=== PATIENT | male | born 1995 | race Caucasian/White ===

== ENCOUNTER 2018-10-26 08:55 | Emergency (ER) | payer OTHER ==
[2018-10-26] MEDS ORDERED: NS 0.9% 1000 ML* 1,000 ML IV ONE (09:37)
[2018-10-26] MEDS ORDERED: Ketorolac INJ* 30 MG/ML 1 ML VIAL IV PUSH ONE (09:38)
--- NOTE | 2018-10-26 09:38 | ED ---
Influenza-Like Illness - HPI Summary HPI Summary: This pt is a 22 y/o male presenting to [facility] c/o headache and sore throat today. Pt reports for the past 2 days he has had nausea, vomiting, diarrhea, fever and full body aches. He states that diarrhea and vomiting have slowly resolved. Currently denies nausea, vomiting, diarrhea, fever, chills. Today he notes he developed a headache and a sore throat. Denies fever, chills, neck pain , nuchal rigidity, photophobia, chest pain, SOB. No PMHx. - History of Current Complaint Chief Complaint: EDGeneral Time Seen by Provider: 10/26/18 09:18 Hx Obtained From: Patient Onset/Duration: Gradual Onset, Lasting Days, Still Present Severity: Moderate Associated Signs & Symptoms: Fever - has resolved, Myalgia - has resolved, Sore Throat, Headache, Vomiting - has resolved, Diarrhea - has resolved - Allergy/Home Medications Allergies/Adverse Reactions: Allergies Allergy/AdvReac Type Severity Reaction Status Date / Time No Known Allergies Allergy Verified 10/26/18 09:10 Home Medications: Home Medications Ibuprofen TAB* [Motrin TAB* 400 MG] 400 mg PO Q6H PRN 10/26/18 [History Confirmed 10/26/18] PMH/Surg Hx/FS Hx/Imm Hx Endocrine/Hematology History: Denies: Hx Diabetes Cardiovascular History: Denies: Hx Hypertension Infectious Disease History: No Infectious Disease History: Denies: Traveled Outside the [place] in Last 30 Days - Family History Known Family History: Negative: Cardiac Disease - Social History Alcohol Use: Weekly Substance Use Type: Reports: None Smoking Status (MU): Former Smoker Review of Systems Negative: Fever, Chills Negative: Photophobia Positive: Sore Throat Negative: Chest Pain Negative: Shortness Of Breath Negative: Abdominal Pain, Vomiting, Diarrhea, Nausea Negative: Other - NEG: neck pain Positive: Headache All Other Systems Reviewed And Are Negative: Yes Physical Exam - Summary Physical Exam Summary: VITAL SIGNS: Reviewed. GENERAL: Patient is a well-developed and nourished male who is lying comfortable in the stretcher. Patient is not in any acute respiratory distress. HEAD AND FACE: No signs of trauma. No ecchymosis, hematomas or skull depressions. No sinus tenderness. EYES: PERRLA, EOMI x 2, No injected conjunctiva, no nystagmus. EARS: Hearing grossly intact. Ear canals and tympanic membranes are within normal limits. MOUTH: Oropharynx within normal limits.Positive pharyngeal erythema. NECK: Supple, trachea is midline, no adenopathy, no JVD, no carotid bruit, no c- spine tenderness, neck with full ROM. CHEST: Symmetric, no tenderness at palpation LUNGS: Clear to auscultation bilaterally. No wheezing or crackles. CVS: Regular rate and rhythm, S1 and S2 present, no murmurs or gallops appreciated. ABDOMEN: Soft, non-tender. No signs of distention. No rebound, no guarding, and no masses palpated. Bowel sounds are normal. EXTREMITIES: FROM in all major joints, no edema, no cyanosis or clubbing. NEURO: Alert and oriented x 3. No acute neurological deficits. Speech is normal and follows commands. SKIN: Dry and warm Triage Information Reviewed: Yes Vital Signs On Initial Exam: Initial Vitals Temp Pulse Resp BP Pulse Ox 97.7 F 60 18 121/67 99 10/26/18 09:06 10/26/18 09:06 10/26/18 09:06 10/26/18 09:06 10/26/18 09:06 Vital Signs Reviewed: Yes Diagnostics - Vital Signs Vital Signs Temp Pulse Resp BP Pulse Ox 10/26/18 09:24 52 121/68 97 10/26/18 09:06 97.7 F 60 18 121/67 99 - Laboratory Result Diagrams: 10/26/18 09:50 10/26/18 09:50 Lab Statement: Any lab studies that have been ordered have been reviewed, and results considered in the medical decision making process. Re-Evaluation - Re-Evaluation First Eval Re-Evaluation Time: 10:47 Change: Improved Comment: I reviewed the lab results with the pt. He will be discharged home. Flu Symptom Course/Dx - Course Assessment/Plan: This pt is a 22 y/o male presenting to [facility] c/o headache and sore throat today. Pt reports for the past 2 days he has had nausea, vomiting, diarrhea, fever and full body aches. He states that diarrhea and vomiting have slowly resolved. Currently denies nausea, vomiting, diarrhea, fever, chills. Today he notes he developed a headache and a sore throat. Denies fever, chills, neck pain, nuchal rigidity, photophobia, chest pain, SOB. No PMHx. Blood work without any significant abnormality. Rapid strep is positive. Influenza A and B is negative. In the ED course the patient was given fluids, Toradol and Augmentin. After these medications the patients symptoms have significantly improved. I discussed all the findings and test results with the patient. Patient was instructed to return to the emergency room immediately if any of the symptoms return or worsens. Plan of care was discussed with the patient, and he understands and agrees. All questions were answered at patient satisfaction. There were no further complaints or concerns. Lung exam before discharge: CTA B/L. Good air exchange. No wheezing or crackles heard. CVS: S1 and S2 present. No murmurs appreciated. Patient is alert and oriented x 3. Patient is hemodynamically stable. Patient will be discharged home with follow up PCP in the next 2-3 days. - Diagnoses Differential Diagnosis/HQI/PQRI: Positive: Broncholiolitis, Influenza, Upper Respiratory Infection Provider Diagnoses: Strep pharyngitis Discharge - Sign-Out/Discharge Documenting (check all that apply): Patient Departure - Discharge home - Discharge Plan Condition: Stable Disposition: HOME Prescriptions: Amoxicillin/Clavulanate TAB* [Augmentin TAB 875*] 875 mg PO BID #20 tab Patient Education Materials: Strep Throat (ED) Referrals: [facility] [Outside] Additional Instructions: FOLLOW UP WITH YOUR PRIMARY CARE PROVIDER WITHIN 2-3 DAYS. IF YOU DON'T HAVE ONE , PLEASE FOLLOW UP WITH [facility]. RETURN TO THE ED FOR ANY NEW OR WORSENING SYMPTOMS. - Billing Disposition and Condition Condition: STABLE Disposition: Home - Attestation Statements Document Initiated by Jo: Yes Documenting Scribe: Pamela Irwin Provider For Whom Jo is Documenting (Include Credential): Arden Trinh MD Scribe Attestation: Pamela Camejo, scribed for Arden Trihn MD on 10/26/18 at 1901. Scribe Documentation Reviewed: Yes Provider Attestation: The documentation as recorded by the Pamela garcia accurately reflects the service I personally performed and the decisions made by me, Arden Trinh MD Status of Scribe Document: Viewed
[2018-10-26 10:04] LABS: ABS Basophils 0 10^3/ul (0-0.2); ABS Eosinophils 0.1 10^3/ul (0-0.6); ABS Monocytes 0.7 10^3/ul (0-0.8); ABS Neutrophils 3.4 10^3/ul (1.5-7.7); ABS Nucleated RBC 0 10^3/ul; Eosinophil % 2.2 %; Hematocrit 44 % (42-52); Hemoglobin 15.1 g/dl (14.0-18.0); Lymphocyte % 19.9 %; Mean Corpuscular HGB Conc 34 g/dl (31-36); Mean Corpuscular Hemoglobin 30 pg (27-31); Mean Corpuscular Volume 86 fL (80-94); Mean Platelet Volume 8.2 fL (7.4-10.4); Nucleated Red Blood Cells % 0.1; Platelet Count 132 10^3/ul (150-450); Red Blood Count 5.12 10^6/ul (4.00-5.40); Red Cell Distribution Width 13 % (10.5-15); White Blood Count 5.2 10^3/ul (3.5-10.8)
[2018-10-26] MEDS ORDERED: Amoxicillin/Clavulanate TAB* 875 MG PO ONE (10:17)
[2018-10-26 10:22] LABS: Albumin 4.1 g/dL (3.2-5.2); Albumin/Globulin Ratio 1.8 (1-3); C Reactive Protein 32.76 mg/L (<8.01); Calcium 9.1 mg/dL (8.6-10.3); EGFR Non-African American 92.6 (>60); Globulin 2.3 g/dL (2-4); Potassium 3.8 mmol/L (3.5-5.0); Total Bilirubin 0.4 mg/dL (0.2-1.0); Total Protein 6.4 g/dL (6.4-8.9)
[2018-10-26 10:44] VITALS: BP 116/67
== END 2018-10-26 10:53 | disposition home or self-care (01) ==
LOC: ED 08:55
DX: J02.0 Streptococcal pharyngitis (principal); Z87.891 Personal history of nicotine dependence
CPT/HCPCS: 36415; 80053; 85025; 86140; 87651; 96361; 96374; 99283; A9270-GY; J1885

== ENCOUNTER 2019-08-02 10:08 | Emergency (ER) | payer OTHER ==
--- OUTSIDE RECORDS SUMMARY | 2019-08-02 10:31 | XMS REPORT | Continuity of Care Document ---
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 No Information Available Social History Type Date Description Comments Sex Unknown Tobacco Use Start: Unknown End: Patient is a former smoker Unknown Smoking Status Reviewed: 07/24/19 Patient is a former smoker Exercise Type/Frequency Exercises sporadically Allergies, Adverse Reactions, Alerts Description No Known Drug Allergies Medications Active Medications SIG Qnty Indications Ordering Provider Date Vyvanse 20mg Unknown Capsules Immunizations Description No Information Available Vital Signs Date Vital Result Comment 07/24/2019 11:15am Height 71.5 inches 5'11.50" Weight 175.00 lb BP Systolic 122 mmHg BP Diastolic 80 mmHg Body Temperature 98.2 F BMI (Body Mass Index) 24.1 kg/m2 07/01/2019 2:21pm Height 71 inches 5'11" Weight 181.50 lb Heart Rate 52 /min BP Systolic 110 mmHg BP Diastolic 70 mmHg Respiratory Rate 12 /min Pain Level 3 BMI (Body Mass Index) 25.3 kg/m2 Results Description No Information Available Procedures Description No Information Available Medical Devices Description No Information Available Encounters Type Date Location Provider Dx Diagnosis Office Visit 07/01/2019 [facility] Jose S52.592A Oth fractures of 2:[facility] lower end of left radius, init for clos fx Assessments Date Code Description Provider 07/24/2019 M79.645 Pain in left finger(s) XANDER Ordaz 07/24/2019 S52.592D Other fractures of lower end of left Jazmyn Jose, RPA -C radius, subsequent encounter for closed fracture with routine healing 07/01/2019 S52.592A Other fractures of lower end of left Jazmyn Jose, RPA -C radius, initial encounter for closed fracture Plan of Treatment Future Appointment(s):08/14/2019 10:45 am - Alee Carlson M.D. at [facility]07/24/2019 - Jazmyn Jose [id number]-[id number] Pain in left finger( s)New Xrays:Finger Left 2ND (Index), Ordered: 07/24/19Follow up:Follow up: 3 [id number] Other fractures of lower end of left radius, subsequent encounter for closed fracture with routine healingNew Xrays:Wrist Left 2 VWS, Ordered: Functional Status Description No Information Available Mental Status Description No Information Available Referrals Description No Information Available
--- OUTSIDE RECORDS SUMMARY | 2019-08-02 10:31 | XMS REPORT | Continuity of Care Document ---
:1995 External Reference #:[id number] Author Name Alee Carlson M.D. 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 Problems Description No Information Available Social History Type Date Description Comments Sex Unknown Tobacco Use Start: Unknown End: Patient is a former smoker Unknown Smoking Status Reviewed: 07/01/19 Patient is a former smoker Exercise Type/Frequency Exercises sporadically Allergies, Adverse Reactions, Alerts Description No Known Drug Allergies Medications Active Medications SIG Qnty Indications Ordering Provider Date Vyvanse 20mg Unknown Capsules Immunizations Description No Information Available Vital Signs Date Vital Result Comment 07/01/2019 2:21pm Height 71 inches 5'11" Weight 181.50 lb Heart Rate 52 /min BP Systolic 110 mmHg BP Diastolic 70 mmHg Respiratory Rate 12 /min Pain Level 3 BMI (Body Mass Index) 25.3 kg/m2 Results Description No Information Available Procedures Description No Information Available Medical Devices Description No Information Available Encounters Description No Information Available Assessments Description No Information Available Plan of Treatment Future Appointment(s):07/18/2019 1:15 pm - Alee Carlson M.D. at [facility] Functional Status Description No Information Available Mental Status Description No Information Available Referrals Description No Information Available
[2019-08-02 10:55] LABS: ABS Eosinophils 0.1 10^3/ul (0-0.6); ABS Lymphocytes 1.3 10^3/ul (1.0-4.8); ABS Monocytes 0.3 10^3/ul (0-0.8); ABS Neutrophils 2.8 10^3/ul (1.5-7.7); Eosinophil % 1.7 %; Hematocrit 46 % (42-52); Hemoglobin 15.8 g/dL (14.0-18.0); Lymphocyte % 29.5 %; Mean Corpuscular HGB Conc 35 g/dL (31-36); Mean Corpuscular Hemoglobin 30 pg (27-31); Mean Corpuscular Volume 87 fL (80-94); Mean Platelet Volume 8.7 fL (7.4-10.4); Nucleated Red Blood Cells % 0.1; Platelet Count 126 10^3/uL (150-450); Red Blood Count 5.25 10^6 /uL (4.18-5.48); Red Cell Distribution Width 13 % (10-15); White Blood Count 4.5 10^3/uL (3.5-10.8)
--- NOTE | 2019-08-02 10:56 | ED ---
Complex/Multi-Sys Presentation - HPI Summary HPI Summary: 23 year old M referred to [facility] by his primary care provider complains of "problems with his circulatory system" since May 2019. Patient states he has hx ADHD. Patient states that he has taken ADHD medications in the past but can' t remember which ones. Currently, patient takes Vyvanse 20 mg which is prescribed to him by Dr. Jaeger, his psychiatrist. Patient states it has been almost 1 year since he started taking Vyvanse. Starting in May 2019, patient notes that as the Vyvanse wears off towards the end of the day, he has noted trace bilateral ankle swelling, and engorgement of his veins and pain in his bilateral upper and lower extremities. Recently, patient has noted engorgement of his veins in his head, shoulder, and thighs. He also has noted light headedness and palpitations. Patient states these symptoms usually start around the afternoon and into the evening. Patient states there are days when he doesn' t take his Vyvanse, and he has symptoms the entire day. These symptoms have been worsening since May 2019. Patient denies symptoms currently. Patient states that during the day, he is mostly sitting down in class and notices that "blood seems to pool at my feet." Patient states that when standing, he feels "blood rushing to his legs," and he has bilateral lower extremity throbbing and pain. Patient states he hasn't been to the gym in 2 months or done any heavy lifting revently. Patient states he called his primary care provider today and was referred to the ED. Symptoms aggravated by Vyvanse 20 mg and the afternoon/ evening time. Symptoms alleviated by nothing. - History Of Current Complaint Chief Complaint: EDGeneral Time Seen by Provider: 08/02/19 10:30 Hx Obtained From: Patient Onset/Duration: Lasting Weeks - May 2019, Still Present Aggravating Factor(s): Vyvanse 20 mg and the afternoon/evening time Alleviating Factor(s): Nothing - Allergies/Home Medications Allergies/Adverse Reactions: Allergies Allergy/AdvReac Type Severity Reaction Status Date / Time No Known Allergies Allergy Verified 08/02/19 10:41 Home Medications: Home Medications Vyvanse 20 mg PO DAILY 08/02/19 [History Confirmed 08/02/19] PMH/Surg Hx/FS Hx/Imm Hx Endocrine/Hematology History: Denies: Hx Diabetes Cardiovascular History: Denies: Hx Hypertension Psychiatric History: Reports: Hx Attention Deficit Hyperactivity Disorder - Surgical History Surgery Procedure, Year, and Place: None Infectious Disease History: No Infectious Disease History: Denies: Traveled Outside the [place] in Last 30 Days - Family History Known Family History: Negative: Cardiac Disease - Social History Alcohol Use: Weekly Hx Substance Use: Yes Substance Use Type: Reports: Marijuana Hx Tobacco Use: Yes Smoking Status (MU): Former Smoker Review of Systems Positive: Palpitations, Other - engorgement of his veins in his bilateral upper and lower extremities, engorgement of his veins in his head, shoulder, and thighs Positive: Other - bilateral ankle swelling, pain in his bilateral upper and lower extremities Neurological: Other - light headedness All Other Systems Reviewed And Are Negative: Yes Physical Exam - Summary Physical Exam Summary: Constitutional: Well-developed, Well-nourished, Alert. (-) Distressed Skin: Warm, Dry, old scar to L hand HENT: Normocephalic; Atraumatic Eyes: Conjunctiva normal Neck: Musculoskeletal ROM normal neck. (-) JVD, (-) Stridor, (-) Nuchal rigidity Cardio: Rhythm regular, bradycardic, Heart sounds normal; Intact distal pulses; Radial pulses are 2+ and symmetric. (-) Murmur Pulmonary/Chest wall: Effort normal. (-) Respiratory distress, (-) Wheezes, (-) Rales Abd: Soft, (-) tenderness, (-) Distension, (-) Guarding, (-) Rebound Musculoskeletal: (-) Edema, 2+ DP pulses, no edema LE Lymph: (-) Cervical adenopathy Neuro: Alert, Oriented x3 Psych: Mood and affect Normal Triage Information Reviewed: Yes Vital Signs On Initial Exam: Initial Vitals Temp Pulse Resp BP Pulse Ox 98.1 F 73 16 144/78 98 08/02/19 10:13 08/02/19 10:13 08/02/19 10:13 08/02/19 10:13 08/02/19 10:13 Vital Signs Reviewed: Yes Diagnostics - Vital Signs Vital Signs Temp Pulse Resp BP Pulse Ox 08/02/19 10:13 98.1 F 73 16 144/78 98 - Laboratory Result Diagrams: 08/02/19 10:47 08/02/19 10:47 Lab Statement: Any lab studies that have been ordered have been reviewed, and results considered in the medical decision making process. - EKG 1042 Cardiac Rate: Bradycardia - 59 BPM EKG Rhythm: Sinus Bradycardia Summary of EKG Findings: An EKG at 10:42 reveals normal sinus bradycardia 59 BPM , nml axis, nml intervals. No STEMI. No acute changes. Re-Evaluation - Re-Evaluation First Eval Re-Evaluation Time: 11:20 Change: Improved Comment: labs unremarkable, updated patient to follow up w PCP and psychiatrist re: medications. Also instructed to recheck BP given mild HTN here. Complex Multi-Symp Course/Dx Course Of Treatment: 23-year-old male presents with concern for engorgement of the veins in arms and legs at the end of the day. Physical exam unremarkable. 2+ radial and DP pulses. Will check labs including CMP to assess for liver enzymes and Cr given reported elevated liver enzymes in past, CPK as he reports occasional muscle aches. EKG sinus bradycardia at rate of 59. - Diagnoses Provider Diagnoses: Unspecified venous (peripheral) insufficiency Discharge ED - Sign-Out/Discharge Documenting (check all that apply): Patient Departure - Discharge Patient Received Moderate/Deep Sedation with Procedure: No - Discharge Plan Condition: Stable Disposition: HOME Patient Education Materials: Venous Insufficiency (DC) Referrals: Marcelle Orosco [Primary Care Provider] - 2 Days Additional Instructions: You were seen in the emergency department for enlarged veins. Your lab work was unremarkable. Your blood pressure was slightly high at 140 systolic, please have this rechecked your primary care doctor, this can be elevated in the emergency department setting secondary to pain or anxiety. If any studies were not completed at the time of discharge you will be called with the relevant results. Please follow up with your primary care doctor in next 2-3 days and return to emergency department for worsening or concerning symptoms. It was a pleasure taking care of you today. - Billing Disposition and Condition Condition: STABLE Disposition: Home - Attestation Statements Document Initiated by Scribe: Yes Documenting Scribe: Madeline Cruz Provider For Whom Scribe is Documenting (Include Credential): Mitchell Tovar MD Scribe Attestation: I, Madeline Cruz, scribed for Mitchell Tovar MD on 08/02/19 at 1121. Scribe Documentation Reviewed: Yes Provider Attestation: The documentation as recorded by the scribe, Madeline Cruz accurately reflects the service I personally performed and the decisions made by me, Mitchell Tovar MD Status of Scribe Document: Viewed
[2019-08-02 11:12] LABS: Albumin 5.1 g/dL (3.2-5.2); Albumin/Globulin Ratio 2.6 (1-3); BUN/Creatinine Ratio 14.4 (8-20); Calcium 9.9 mg/dL (8.6-10.3); EGFR African American 115.1 (>60); EGFR Non-African American 95.1 (>60); Potassium 3.8 mmol/L (3.5-5.0); Total Bilirubin 0.5 mg/dL (0.2-1.0); Total Protein 7.1 g/dL (6.4-8.9)
[2019-08-02 11:17] VITALS: BP 137/78
== END 2019-08-02 11:25 | disposition home or self-care (01) ==
LOC: ED 10:08
DX: I87.2 Venous insufficiency (chronic) (peripheral) (principal); F90.9 Attention-deficit hyperactivity disorder, unspecified type; Z79.899 Other long term (current) drug therapy; Z87.891 Personal history of nicotine dependence
CPT/HCPCS: 36415; 80053; 82550; 85025; 93005; 99282